=== PATIENT | male | born 1975 | race Hispanic/Latino ===

== ENCOUNTER 2017-10-25 12:18 | Emergency (ER) | payer BC ==
[~2017-10-25] VITALS: Ht 182.9 cm; Wt 106.1 kg
[2017-10-25 13:03] VITALS: BP 138/64
== END 2017-10-25 13:08 | disposition home or self-care (01) ==
LOC: FSED 12:18
DX: R50.9 Fever, unspecified (principal); B34.9 Viral infection, unspecified
CPT/HCPCS: 87400; 99282